=== PATIENT | male | born 1945 | race Caucasian/White ===

== ENCOUNTER 2019-02-13 14:31 | Emergency (ER) | payer OTHER, MEDICARE ==
[2019-02-13] MEDS ORDERED: Sodium Chloride 0.9% 1000 ML 1,000 ML IV STA ×3 (14:53→16:12)
[2019-02-13] MEDS ORDERED: Sodium Chloride 0.9% 1000 ML 1,000 ML ONE ×2 (15:09→16:13)
--- NOTE | 2019-02-13 15:13 | XRAY ---
Indication: Short of breath and weakness. Sepsis. Comparison: None Portable apical lordotic chest demonstrates left base infiltrate/atelectasis/effusion. Right lung clear. Heart borderline enlarged with left AICD. Bony thorax intact.
[2019-02-13 15:46] LABS: Absolute Neutrophil Ct (ANC) 4.98 (1.4-6.9); BASOPHIL % 0.1 % (0.0-0.4); Basophil (Absolute #) 0.01 (0-0.4); Eosinophil (Absolute #) 0.08 (0-0.5); Hematocrit 44.2 % (42-50); Hemoglobin 14.2 gm/dl (12.5-18.0); Lymphocyte (Absolute #) 1.94 (1.0-4.6); Lymphocytes % 24.4 % (24.0-44.0); Mean Cell Volume 95.7 fl (78-100); Mean Corpuscular Hemoglobin 30.7 pg (26-32); Mean Corpuscular Hgb Concent. 32.1 g/dl (32-36); Mean Platelet Volume 12.3 fl (6-9.5); Monocyte (Absolute #) 0.94 (0.0-1.3); Monocytes % 11.8 % (0.0-12.0); Neutrophil % 62.7 % (36.0-66.0); Platelet Count 100 K/mm3 (150-450); Red Blood Count 4.62 M/mm3 (4.1-5.6); Red Cell Distribution Width 21.2 % (11.5-14.0)
--- NOTE | 2019-02-13 16:00 | ERPHSYRPT ---
- History of Present Illness Time Seen by Provider: 02/13/19 14:35 Source: patient Exam Limitations: no limitations Patient Subjective Stated Complaint: EMS REPORTS PATIENT HAS HAD VOMITING FOR TWO WEEKS AND TODAY HAS BEEN VERY WEAK. ALSO REPORT LOW B/P. HX OF RENAL FAILURE. Triage Nursing Assessment: TO ROOM PER EMS COT. SKIN W/D, COLOR MOTTLED. DENIES ANY PAIN AT THIS TIME. FAMILY STATES WAS UNABLE TO GET OUT OF CHAIR TODAY. Physician History: Patient has had nausea and vomiting for the past two weeks with limited oral intake. Patient lives with family, and he had generalized weakness this morning , so EMS was called this afternoon to bring him into the emergency department. Timing/Duration: today, hour(s) (6) Severity: moderate Modifying Factors: Improves With: rest. Worsens With: movement Associated Symptoms: nausea, vomiting, weakness (generalized), No abdominal pain , No shortness of breath, No heartburn, No diaphoresis, No cough, No chills, No chest pain, No fever, No headaches, No loss of appetite, No malaise, No rash, No syncope, No seizure Allergies/Adverse Reactions: No Known Drug Allergies Allergy (Unverified 02/13/19 15:00) Hx Tetanus, Diphtheria Vaccination/Date Given: No Hx Influenza Vaccination/Date Given: Yes Hx Pneumococcal Vaccination/Date Given: Yes - Review of Systems Constitutional: Fatigue, No Fever, No Chills Eyes: No Eye Pain, No Vision Changes Ears, Nose, & Throat: No Nose Congestion, No Mouth Swelling Respiratory: No Cough, No Dyspnea Cardiac: No Chest Pain, No Edema, No Syncope Abdominal/Gastrointestinal: No Abdominal Pain, No Nausea, No Vomiting, No Diarrhea Genitourinary Symptoms: No Dysuria, No Hematuria, No Flank Pain Musculoskeletal: No Back Pain, No Neck Pain Skin: No Rash Neurological: No Dizziness, No Focal Weakness, No Headache, No Seizure, No Sensory Changes, No Tremors Psychological: No Symptoms Endocrine: No Excessive Sweating Hematologic/Lymphatic: No Easy Bleeding, No Easy Bruising All Other Systems: Reviewed and Negative - Past Medical History Pertinent Past Medical History: Yes Cardiac History: Arrhythmia, Congestive Heart Failure Endocrine Medical History: Hypothyroidism Musculoskeletal History: Arthritis GI Medical History: GERD History: Renal Disease Male Reproductive Disorders: Prostate Problems - Past Surgical History Past Surgical History: Yes Cardiac: Internal Defibrillator, Pacemaker - Social History Smoking Status: Never smoker Exposure to second hand smoke: Yes Drug Use: none Patient Lives Alone: No - Nursing Vital Signs Nursing Vital Signs: Initial Vital Signs Temperature 97.3 F 02/13/19 14:40 Pulse Rate 81 02/13/19 14:40 Respiratory Rate 16 02/13/19 14:40 Blood Pressure 77/62 02/13/19 14:40 O2 Sat by Pulse Oximetry 99 02/13/19 14:40 Pain Scale Pain Intensity 0 - Physical Exam General Appearance: no apparent distress, alert Eye Exam: PERRL/EOMI, eyes nml inspection Ears, Nose, Throat Exam: normal ENT inspection, TMs normal, pharynx normal, dry mucous membranes Neck Exam: normal inspection, non-tender, supple, full range of motion, No meningismus, No Brudzinski Respiratory Exam: normal breath sounds, lungs clear, No respiratory distress, No diminished breath sounds, No accessory muscle use, No crackles/rales, No rhonchi, No wheezing, No stridor Cardiovascular Exam: normal heart sounds, irregular, capillary refill 2-3 sec Gastrointestinal/Abdomen Exam: soft, normal bowel sounds, No tenderness, No mass Back Exam: normal inspection, normal range of motion, No CVA tenderness, No vertebral tenderness Extremity Exam: normal inspection, normal range of motion, pelvis stable Neurologic Exam: alert, oriented x 3, cooperative, 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, normal mood/affect, sensation nml, No motor deficits, No sensory deficit, No facial droop Skin Exam: normal color, warm, dry, No rash Lymphatic Exam: No adenopathy SpO2 Interpretation: normal SpO2: 100 O2 Delivery: Room Air - Course Nursing assessment & vital signs reviewed: Yes EKG Interpreted by Me: RATE (79), A-fib, NORMAL AXIS, NORMAL INTERVALS, NORMAL QRS, NORMAL ST-T, Other (negative previous EKG available for comparison) - Radiology Exams Chest X-ray Interpretation: Interpreted by me, Reviewed by me, Other (per radiologist interpretation: Portable apical lordotic chest and trace left base infiltrate/ atelectasis/effusion. Right lungs clear. Heart borderline enlarged left AICD. Bony thorax intact.) - CT Exams Chest CT Interpretation: Other (ccardiomegaly with bilateral pleural effusions favoring cardiac decompensation. Superimposed pneumonia not clearly excluded. Suspect cirrhosis with small ascites. 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 Care 02/13/19 14:52 Active EKG-ER Only STAT Care 02/13/19 14:52 Active Bryant [Catheter-Miller Bryant] STAT Care 02/13/19 16:24 Active Pulse Oximetry (ED) STAT Care 02/13/19 14:52 Active CHEST 1 VIEW (PORTABLE) Stat Exams 02/13/19 14:52 Completed CHEST WITHOUT CONTRAST [CT] Stat Exams 02/13/19 15:15 Completed AMYLASE Stat Lab 02/13/19 15:45 Completed BLOOD CULTURE Stat Lab 02/13/19 15:45 Received CBC W DIFF Stat Lab 02/13/19 15:45 Completed CMP Stat Lab 02/13/19 15:45 Completed CULTURE,URINE Stat Lab 02/13/19 16:41 Ordered LIPASE Stat Lab 02/13/19 15:45 Completed Lactic Acid Stat Lab 02/13/19 15:22 Completed Lactic Acid Stat Lab 02/13/19 17:38 Results PROTIME WITH INR Stat Lab 02/13/19 14:52 Completed PTT Stat Lab 02/13/19 14:52 Completed TROPONIN Q3H Lab 02/13/19 15:45 Completed TROPONIN Q3H Lab 02/13/19 18:00 Ordered TROPONIN Q3H Lab 02/13/19 21:00 Ordered TROPONIN Q3H Lab 02/14/19 00:00 Ordered TROPONIN Q3H Lab 02/14/19 03:00 Ordered UA W/RFX UR CULTURE Stat Lab 02/13/19 16:41 Completed VENOUS BLOOD GAS Stat Lab 02/13/19 15:27 Ordered Medication Summary Discontinued Medications Generic Name Dose Route Start Last Admin Trade Name Freq PRN Reason Stop Dose Admin Sodium Chloride 1,000 mls @ 999 mls/hr 02/13/19 14:53 02/13/19 16:31 Sodium Chloride 0.9% 1000 Ml IV 02/13/19 15:53 Infused .Q1H1M STA Infusion Sodium Chloride Confirm 02/13/19 15:09 Sodium Chloride 0.9% 1000 Ml Administered 02/13/19 15:10 Dose 1,000 mls @ ud .ROUTE .STK-MED ONE Sodium Chloride 1,000 mls @ 999 mls/hr 02/13/19 15:36 02/13/19 15:46 Sodium Chloride 0.9% 1000 Ml IV 02/13/19 16:36 Not Given .Q1H1M STA Ceftriaxone Sodium/Dextrose 1 g in 50 mls @ 100 mls/hr 02/13/19 16:01 17:28 Rocephin 1 Gm-D5w 50 Ml Bag IV 02/13/19 16:30 Infused STAT STA Infusion Sodium Chloride 1,000 mls @ 999 mls/hr 02/13/19 16:12 02/13/19 17:28 Sodium Chloride 0.9% 1000 Ml IV 02/13/19 17:12 Infused .Q1H1M STA Infusion Sodium Chloride Confirm 02/13/19 16:13 Sodium Chloride 0.9% 1000 Ml Administered 02/13/19 16:14 Dose 1,000 mls @ ud .ROUTE .STK-MED ONE Ceftriaxone Sodium/Dextrose Confirm 02/13/19 16:13 Rocephin 1 Gm-D5w 50 Ml Bag Administered 02/13/19 16:14 Dose 1 g in 50 mls @ ud IV .STK-MED ONE Lab/Rad Data: Laboratory Result Diagrams 02/13/19 15:45 02/13/19 15:45 Laboratory Results 02/13/19 02/13/19 02/13/19 Range/Units 17:38 16:41 15:45 WBC (4.0-10.5) K/mm3 RBC (4.1-5.6) M/mm3 Hgb (12.5-18.0) gm/dl Hct (42-50) % MCV (78-100) fl MCH (26-32) pg MCHC (32-36) g/dl RDW (11.5-14.0) % Plt Count (150-450) K/mm3 MPV (6-9.5) fl Gran % (36.0-66.0) % Eos # (Auto) (0-0.5) Absolute Lymphs (auto) (1.0-4.6) Absolute Monos (auto) (0.0-1.3) Lymphocytes % (24.0-44.0) % Monocytes % (0.0-12.0) % Eosinophils % (0.00-5.0) % Basophils % (0.0-0.4) % Absolute Granulocytes (1.4-6.9) Basophils # (0-0.4) PT (8.83-12.87) SECONDS INR (0.8-3.0) APTT (24.1-36.1) SECONDS Sodium (137-145) mmol/L Potassium (3.5-5.1) mmol/L Chloride (98-107) mmol/L Carbon Dioxide (22-30) mmol/L Anion Gap (5-15) MEQ/L BUN (9-20) mg/dL Creatinine (0.66-1.25) mg/dL Estimated GFR ML/MIN Glucose (74-106) mg/dL Lactic Acid 2.3 H (0.4-2.0) Calcium (8.4-10.2) mg/dL Total Bilirubin (0.2-1.3) mg/dL AST (17-59) U/L ALT (0-50) U/L Alkaline Phosphatase (38-126) U/L Troponin I 0.037 H* (0.000-0.034) ng/mL Serum Total Protein (6.3-8.2) g/dL Albumin (3.5-5.0) g/dL Amylase (30-110) U/L Lipase (23-300) U/L Urine Color ELA (YELLOW) Urine Appearance SLIGHTLY CLOUDY (CLEAR) Urine pH 5.0 (5-6) Ur Specific [place] 1.013 (1.005-1.025) Urine Protein NEGATIVE (Negative) Urine Ketones NEGATIVE (NEGATIVE) Urine Blood NEGATIVE (0-5) Jordy/ul Urine Nitrite NEGATIVE (NEGATIVE) Urine Bilirubin NEGATIVE (NEGATIVE) Urine Urobilinogen NEGATIVE (0-1) mg/dL Ur Leukocyte Esterase NEGATIVE (NEGATIVE) Urine WBC (Auto) NONE (0-5) /HPF Urine RBC (Auto) NONE (0-2) /HPF U Hyaline Cast (Auto) 3-5 (0-2) /LPF U Epithel Cells (Auto) NONE (FEW) /HPF Urine Bacteria (Auto) NONE (NEGATIVE) /HPF Urine Culture Reflexed ORDERED SEPARATELY (NO) Urine Glucose NEGATIVE (NEGATIVE) mg/dL 02/13/19 02/13/19 02/13/19 Range/Units 15:45 15:45 15:22 WBC 8.0 (4.0-10.5) K/mm3 RBC 4.62 (4.1-5.6) M/mm3 Hgb 14.2 (12.5-18.0) gm/dl Hct 44.2 (42-50) % MCV 95.7 (78-100) fl MCH 30.7 (26-32) pg MCHC 32.1 (32-36) g/dl RDW 21.2 H (11.5-14.0) % Plt Count 100 L (150-450) K/mm3 MPV 12.3 H (6-9.5) fl Gran % 62.7 (36.0-66.0) % Eos # (Auto) 0.08 (0-0.5) Absolute Lymphs (auto) 1.94 (1.0-4.6) Absolute Monos (auto) 0.94 (0.0-1.3) Lymphocytes % 24.4 (24.0-44.0) % Monocytes % 11.8 (0.0-12.0) % Eosinophils % 1.0 (0.00-5.0) % Basophils % 0.1 (0.0-0.4) % Absolute Granulocytes 4.98 (1.4-6.9) Basophils # 0.01 (0-0.4) PT (8.83-12.87) SECONDS INR (0.8-3.0) APTT (24.1-36.1) SECONDS Sodium 137 (137-145) mmol/L Potassium 5.7 H (3.5-5.1) mmol/L Chloride 104 (98-107) mmol/L Carbon Dioxide 21 L (22-30) mmol/L Anion Gap 18.4 H (5-15) MEQ/L BUN 83 H (9-20) mg/dL Creatinine 4.65 H (0.66-1.25) mg/dL Estimated GFR 13.2 ML/MIN Glucose 107 H (74-106) mg/dL Lactic Acid 3.0 H (0.4-2.0) Calcium 9.4 (8.4-10.2) mg/dL Total Bilirubin 2.40 H (0.2-1.3) mg/dL AST 26 (17-59) U/L ALT 13 (0-50) U/L Alkaline Phosphatase 102 (38-126) U/L Troponin I (0.000-0.034) ng/mL Serum Total Protein 6.8 (6.3-8.2) g/dL Albumin 3.5 (3.5-5.0) g/dL Amylase 66 (30-110) U/L Lipase 50 (23-300) U/L Urine Color (YELLOW) Urine Appearance (CLEAR) Urine pH (5-6) Ur Specific [place] (1.005-1.025) Urine Protein (Negative) Urine Ketones (NEGATIVE) Urine Blood (0-5) Jordy/ul Urine Nitrite (NEGATIVE) Urine Bilirubin (NEGATIVE) Urine Urobilinogen (0-1) mg/dL Ur Leukocyte Esterase (NEGATIVE) Urine WBC (Auto) (0-5) /HPF Urine RBC (Auto) (0-2) /HPF U Hyaline Cast (Auto) (0-2) /LPF U Epithel Cells (Auto) (FEW) /HPF Urine Bacteria (Auto) (NEGATIVE) /HPF Urine Culture Reflexed (NO) Urine Glucose (NEGATIVE) mg/dL 02/13/19 Range/Units 14:52 WBC (4.0-10.5) K/mm3 RBC (4.1-5.6) M/mm3 Hgb (12.5-18.0) gm/dl Hct (42-50) % MCV (78-100) fl MCH (26-32) pg MCHC (32-36) g/dl RDW (11.5-14.0) % Plt Count (150-450) K/mm3 MPV (6-9.5) fl Gran % (36.0-66.0) % Eos # (Auto) (0-0.5) Absolute Lymphs (auto) (1.0-4.6) Absolute Monos (auto) (0.0-1.3) Lymphocytes % (24.0-44.0) % Monocytes % (0.0-12.0) % Eosinophils % (0.00-5.0) % Basophils % (0.0-0.4) % Absolute Granulocytes (1.4-6.9) Basophils # (0-0.4) PT 75.7 H (8.83-12.87) SECONDS INR 6.35 H* (0.8-3.0) APTT 47.1 H (24.1-36.1) SECONDS Sodium (137-145) mmol/L Potassium (3.5-5.1) mmol/L Chloride (98-107) mmol/L Carbon Dioxide (22-30) mmol/L Anion Gap (5-15) MEQ/L BUN (9-20) mg/dL Creatinine (0.66-1.25) mg/dL Estimated GFR ML/MIN Glucose (74-106) mg/dL Lactic Acid (0.4-2.0) Calcium (8.4-10.2) mg/dL Total Bilirubin (0.2-1.3) mg/dL AST (17-59) U/L ALT (0-50) U/L Alkaline Phosphatase (38-126) U/L Troponin I (0.000-0.034) ng/mL Serum Total Protein (6.3-8.2) g/dL Albumin (3.5-5.0) g/dL Amylase (30-110) U/L Lipase (23-300) U/L Urine Color (YELLOW) Urine Appearance (CLEAR) Urine pH (5-6) Ur Specific [place] (1.005-1.025) Urine Protein (Negative) Urine Ketones (NEGATIVE) Urine Blood (0-5) Jordy/ul Urine Nitrite (NEGATIVE) Urine Bilirubin (NEGATIVE) Urine Urobilinogen (0-1) mg/dL Ur Leukocyte Esterase (NEGATIVE) Urine WBC (Auto) (0-5) /HPF Urine RBC (Auto) (0-2) /HPF U Hyaline Cast (Auto) (0-2) /LPF U Epithel Cells (Auto) (FEW) /HPF Urine Bacteria (Auto) (NEGATIVE) /HPF Urine Culture Reflexed (NO) Urine Glucose (NEGATIVE) mg/dL - Progress Progress: unchanged Progress Note: 02/13/19 16:57 Patient and then change his status after IV hydration. Patient has not been in any respiratory distress and maintains oxygenation without any difficulty. patient's family says he does have a history of kidney failure and heart failure. He has not been well for multiple weeks. 02/13/19 17:54 Patient has maintained his blood pressure with MAP at 64/65 but not much improvement with overall blood pressure. Patient's lactic acid has improved after IV fluids from 3.0 to 2.3 Patient has had generalized weakness due to multiple issues, including chronic disease, poor oral intake, and most likely infectious etiology that brought him in the emergency department this afternoon. patient was found to have poor renal function and size of bilateral pleural effusions on CT scan imaging after initial chest x-ray showed a left effusion/atelectasis/infiltrate finding. Patient's had no signs of fever, no alveolar blood cell count, and a urinalysis that was negative for any signs of infection. Patient tolerated IV hydration in the emergency department very well. patient maintained his oxygenation without any difficulty and he did not need any BiPAP or invasive respiratory support. My concern for the patient is that he is probably septic with some intravascular depletion causing his acute renal insufficiency which may be contributing to heart failure at this time. Discussed with Dr.: Other (@17:28, spoke with Dr Scot Salomon of the [facility] ICU in [place], [place]. Dr Salomon accepted the patient for admission to the [facility] ICU.) Counseled pt/family regarding: lab results, diagnosis, need for follow-up, rad results - Departure Departure Disposition: Transfer ([facility] in [place], [place]) Clinical Impression: Sepsis associated hypotension, Acute on chronic renal insufficiency, Bilateral pleural effusion Condition: Fair Critical Care Time: Yes Critical Care Time(excluding separately billable procedures): Critical 30-74 mins Referrals: MARLENY SCHAEFER Jr., MD [Primary Care Provider] -
[2019-02-13] MEDS ORDERED: ROCEPHIN 1 Gm-D5w 50 ml Bag** 1 G/50 ML IVPB IV STA (16:01)
[2019-02-13 16:03] LABS: ALBUMIN 3.5 g/dL (3.5-5.0); ANION GAP 18.4 MEQ/L (5-15); BILIRUBIN,TOTAL 2.4 mg/dL (0.2-1.3); Calcium 9.4 mg/dL (8.4-10.2); Creatinine 1 4.65 mg/dL (0.66-1.25); Potassium 5.7 mmol/L (3.5-5.1); Total Protein 6.8 g/dL (6.3-8.2)
[2019-02-13 16:05] LABS: PTT 47.1 SECONDS (24.1-36.1)
[2019-02-13 16:09] LABS: PROTIME 75.7 SECONDS (8.83-12.87)
[2019-02-13] MEDS ORDERED: ROCEPHIN 1 Gm-D5w 50 ml Bag** 1 G/50 ML IVPB IV ONE (16:13)
[2019-02-13 16:19] LABS: INR 6.35 (0.8-3.0)
--- NOTE | 2019-02-13 16:21 | XRAY ---
Indication: Short of breath and weakness. Multiple contiguous axial images obtained through the chest without contrast as ordered. Comparison: None Moderate pleural effusions, left greater than right with mild bibasilar compressive atelectasis. Heart is enlarged with left-sided single lead pacemaker. Aorta is mildly arteriosclerotic without aneurysm. No pathologic mediastinal lymphadenopathy. Bony thorax intact with minimal degenerative changes throughout the spine. Limited upper abdomen demonstrates 3 cm left lobe hepatic cyst. Liver also demonstrates micronodular margins as seen in cirrhosis. Small perihepatic and perisplenic free fluid. Impression: 1. Cardiomegaly with bilateral pleural effusions favoring cardiac decompensation. Superimposed pneumonia not completely excluded. 2. Suspect cirrhosis with small ascites. 3. Incidental hepatic cyst. CT DI 14.16
[2019-02-13 17:09] LABS: Appearance SLIGHTLY CLOUDY (CLEAR); Bilirubin NEGATIVE (NEGATIVE); Blood NEGATIVE Ery/ul (0-5); Glucose NEGATIVE (NEGATIVE); Ketones NEGATIVE (NEGATIVE); Leukocyte Esterase NEGATIVE (NEGATIVE); Nitrite NEGATIVE (NEGATIVE); Protein,Urine Dip NEGATIVE (Negative); Specific Gravity 1.013 (1.005-1.025); Urobilinogen NEGATIVE mg/dL (0-1)
[2019-02-13 17:40] LABS: Lactic Acid 2.3 (0.4-2.0)
[2019-02-13 18:52] VITALS: O2SAT 98
[2019-02-13 19:54] VITALS: BP 77/55; PULSE 74
== END 2019-02-13 20:00 | disposition short-term general hospital (02) ==
LOC: ED 14:31
DX: I95.89 Other hypotension (principal); A41.89 Other specified sepsis; N18.9 Chronic kidney disease, unspecified; J90 Pleural effusion, not elsewhere classified; R11.2 Nausea with vomiting, unspecified; R53.1 Weakness; I50.9 Heart failure, unspecified; Z95.810 Presence of automatic (implantable) cardiac defibrillator; Z95.0 Presence of cardiac pacemaker
CPT/HCPCS: 36415; 51702; 71045; 71250; 80053; 81001; 82150; 83605; 83690; 84484; 85025; 85610; 85730; 87040; 87086; 93005; 93041; 94002; 94760; 96360; 96361; 96365; 99285; 99291; J0696